=== PATIENT | female | born 1990 | race Caucasian/White ===

== ENCOUNTER 2020-08-21 11:08 | Outpatient (CLI) | payer BC, SELFPAY ==
--- NOTE | ~2020-08-21 | XR_ITS ---
EXAMINATION: XR hysterosalpingogram DATE: 08/21/2020 15:16 CDT INDICATION: Infertility TECHNIQUE: Fluoroscopy was provided for a hysterosalpingogram performed by Dr. Green. FINDINGS: Initial specialty sales consultant radiographically of the pelvis demonstrates a right pelvic phlebolith. There is normal intraluminal morphology of the uterus. The fallopian tubes are normal in appearance and a re widely patent, with free spill into the peritoneal cavity from both sides. IMPRESSION: 1. Normal hysterosalpingogram. The uterus demonstrates normal intraluminal morphology and both fall opian tubes are patent. Reviewed, dictated and finalized at location A. IMPRESSION: 1. Normal hysterosalpingogram. The uterus demonstrates normal intraluminal mo rphology and both fallopian tubes are patent.
== END 2020-08-21 11:09 | disposition home or self-care (01) ==
PROVIDERS: PCP Obstetrics & Gynecology; Visit Provider Obstetrics & Gynecology
DX: N97.9 Female infertility, unspecified (principal)
CPT/HCPCS: 58340; 74740

== ENCOUNTER 2021-04-15 12:05 | Outpatient (RCR) | payer BC, SELFPAY ==
[2021-04-17] MEDS: RHO(D) IMMUNE GLOBULIN 300 MCG/2 ML SYRINGE IM (12:04)
== END 2021-07-14 23:59 | disposition home or self-care (01) ==
LOC: ANHLAB 12:05
PROVIDERS: Visit Provider Obstetrics & Gynecology
DX: Z29.13 Encounter for prophylactic Rho(D) immune globulin (principal); O36.0190 Maternal care for anti-D [Rh] antibodies, unspecified trimester, not applicable or unspecified; Z3A.00 Weeks of gestation of pregnancy not specified
CPT/HCPCS: 36415; 85461; 90384; 96372; J2790

== ENCOUNTER 2021-04-25 13:00 | Outpatient (RCR) | payer BC, SELFPAY ==
[2021-04-25 13:05] VITALS: BMI 51.8
[2021-04-25 13:06] VITALS: BMI 51.8
== END 2021-07-15 11:31 | disposition home or self-care (01) ==
LOC: ANHDMC 13:00
PROVIDERS: Visit Provider Obstetrics & Gynecology
DX: O24.319 Unspecified pre-existing diabetes mellitus in pregnancy, unspecified trimester (principal); Z3A.00 Weeks of gestation of pregnancy not specified; Z71.3 Dietary counseling and surveillance; Z71.89 Other specified counseling
CPT/HCPCS: 97802; G0108

== ENCOUNTER 2021-06-12 10:01 | Outpatient (RCR) | payer BC, SELFPAY ==
[2021-05-15 11:53] VITALS: BP 124/65; PULSE 100
[2021-05-22 10:57] VITALS: BP 119/77; PULSE 110
[2021-05-29 10:08] VITALS: BP 115/68; PULSE 97
[2021-06-04 14:06] VITALS: BP 107/59; PULSE 100
[2021-06-12 10:49] VITALS: BP 111/72; PULSE 86
== END 2021-06-18 08:55 | disposition home or self-care (01) ==
LOC: ANHOBOP 10:01
PROVIDERS: Visit Provider Obstetrics & Gynecology
DX: O24.419 Gestational diabetes mellitus in pregnancy, unspecified control (principal); Z3A.31 31 weeks gestation of pregnancy; Z3A.33 33 weeks gestation of pregnancy; Z3A.34 34 weeks gestation of pregnancy; Z3A.35 35 weeks gestation of pregnancy; Z3A.36 36 weeks gestation of pregnancy; Z3A.37 37 weeks gestation of pregnancy
CPT/HCPCS: 59025

== ENCOUNTER 2021-06-17 14:55 | Outpatient (CLI) | payer BC, SELFPAY ==
[2021-06-17 15:23] LABS: Hematocrit 39.3 % (37.0-47.0); Hemoglobin 12.3 g/dL (12.0-15.0); Mean Corpuscular HGB Conc 31.3 g/dl (32-36); Mean Corpuscular Hemoglobin 28.8 pg (26-34); Platelet Count Result 215 k/mm3 (150-375); Red Blood Count 4.27 M/mm3 (4.2-5.4); Red Cell Distribution Width 14.8 % (11.5-14.5); White Blood Count 9.3 K/mm3 (4.5-10.0)
[2021-06-18 11:24] LABS: Rapid Plasma Reagin Non-Reactive (NonReactive)
== END 2021-06-17 14:56 | disposition home or self-care (01) ==
PROVIDERS: Visit Provider Obstetrics & Gynecology
DX: Z01.818 Encounter for other preprocedural examination (principal)
CPT/HCPCS: 36415; 85027; 86592; 86850; 86900; 86901

== ENCOUNTER 2021-06-18 02:30 | Inpatient (IN) | payer BC, SELFPAY ==
--- NOTE | 2021-06-04 14:01 | PC.NURSE ---
VERIFIED WITH OR SCHEDULE AND PATIENT - C/S ON 06/18/21 AT 1200 PATIENT GIVEN REQUISITION FOR LAB DRAW ON 06/17/21
[2021-06-18] VITALS (56 sets, daily range): BP systolic 85–136; BP diastolic 29–83; PULSE 50–117; RESP 12–18; TEMP 36.1–36.8; O2SAT 90–97; BMI 51.7
--- NOTE | 2021-06-18 03:10 | PC.NURSE ---
pt reports blood glucose reading of 90 at time of admission using personal glucose monitor. dr martinez aware
[2021-06-18] MEDS: LACTATED RINGERS 1,000 ML 125 ML IV CONT (03:20)
--- NOTE | 2021-06-18 03:31 | WPDANESEPPF ---
Anes - Initial Pre Proc Eval Procedure: Operation Date: 06/18/21 12:00 Proposed Procedures p Repeat Section - Logan Green MD Date/Time: 06/18/21 03:31 Surgeon: Logan Green MD Pre Op Diagnosis: Leaking Patient Data Age: 31 Gender: F Height: 1.55 m Weight: 124.3 kg Last Vital Signs Pulse 117 H 06/18/21 03:02 BP 116/51 L 06/18/21 03:02 Allergies Allergy/AdvReac Type Severity Reaction Status Date / Time No Known Allergies Allergy Unknown Verified 06/04/21 13:52 Home Medications Medication Instructions Recorded Confirmed Type [id number] fumarate-FA 1 tablet PO DAILY 05/15/21 05/15/21 History [] glyburide 5 mg PO BID 05/15/21 05/15/21 History glyburide 10 mg PO HS 06/04/21 06/04/21 History Patient hx anesthesia problems: none Family hx anesthesia problems: none PMFSH Past Medical History Medical History GDM (gestational diabetes mellitus) Surgical History Surgical History History of History of cholecystectomy Family History Family History Mother Hypertension Type 2 diabetes mellitus Father Hypertension Grandparent Colon cancer Type 2 diabetes mellitus Social History Social History Smoking status: Never smoker Alcohol intake: current Substance use: never Spiritual care concerns: No Anes - Eval Final PreProcedure Day of Procedure 06/18/21 03:31 Patient weight: morbidly obese Heart: regular rate and rhythm Lungs: clear to auscultation and normal air movement Airway: Mallampati scale class II Neurological: alert and oriented Last oral intake: 6 hours ASA classification: III Emergent: yes Anesthetic plan: proceed Anesthesia type and monitoring: regional spinal and standard monitoring Informed Consent: The patient's anesthetic plan and its attendant risks and benefits were discussed with the patient/family/POA. Questions were solicited and answers provided to the satisfaction of the patient/family/POA.
--- NOTE | 2021-06-18 03:40 | PM.IMHP ---
H&P: HPI History of Present Illness Date/Time: 06/18/21 03:40 31 y/o at 38 2/7 weeks with A2DM, on glyburide. Had gush of clear fluid. SROM confirmed on L&D. GBS neg. Rh neg. Chief Complaint: My water broke. Review of Systems Review of Systems: All systems reviewed & are unremarkable except as noted in HPI and below PMFSH Past Medical History Medical History (Updated 06/18/21 @ 03:43 by Logan Green MD) GDM (gestational diabetes mellitus) Surgical History Surgical History (Updated 06/18/21 @ 03:43 by Logan Green MD) History of ankle surgery History of History of cholecystectomy Family History Family History Mother Hypertension Type 2 diabetes mellitus Father Hypertension Grandparent Colon cancer Type 2 diabetes mellitus Social History Social History Smoking status: Never smoker Alcohol intake: current Substance use: never Spiritual care concerns: No Meds Home Medications and Allergies Home Medications Medication Instructions Recorded Confirmed Type [id number]-byytxfr fumarate-FA 1 tablet PO DAILY 05/15/21 05/15/21 History [] glyburide 5 mg PO BID 05/15/21 05/15/21 History glyburide 10 mg PO HS 06/04/21 06/04/21 History Allergies Allergy/AdvReac Type Severity Reaction Status Date / Time No Known Allergies Allergy Unknown Verified 06/04/21 13:52 Vital Signs Vital Signs - 24 hr 06/18/21 03:02 06/18/21 03:31 Pulse Rate 117 H 87 Blood Pressure 116/51 L 126/68 Exam Const: Orientation/consciousness: patient oriented x3 Other: Well-developed, well-nourished female in no acute distress. Neck: Thyroid: thyroid normal Lymphatic: no lymphadenopathy noted (in neck, axilla or inguinal nodes) Resp: Effort & Inspection: normal respiratory effort Auscultation: clear to auscultation bilaterally Cardio: Rate: regular rate Rhythm: regular rhythm Heart sounds: S1 normal heart sound present and S2 normal heart sound present GI: Other: ABD: Soft, nontender, nondistended, gravid. NST reactive. TOCO: contractions every 2-5 min. No guarding or rebound tenderness. No hepatosplenomegaly. : General: Yes no CVA tenderness Other: Gross ROM. Cervix 3/50/-2 Back/Spine/Pelvis: Back: no CVA tenderness Skin: General skin exam: normal color and no rashes or lesions noted Neuro: General: patient oriented x3 Extrem: Other: Extremities: nontender with no edema Psych: Mental Status: mental status grossly normal Affect: normal affect Assessment and Plan Assessment and plan (1) SROM (spontaneous rupture of membranes): Status: Acute Assessment and Plan: A: IUP at 38 2/7 weeks with SROM, prior , A2DM. P: She desires repeat . She understands risks of surgery to include risks of anesthesia, risks of pain, infection, bleeding, blood products, thromboembolic phenomena and damage to adjacent structures such as bowel, bladder, ureters, blood vessels and nerves. She understands all these risks and elects to proceed with surgery. (2) GDM (gestational diabetes mellitus): Code(s): O24.419 - Gestational diabetes mellitus in , unspecified control Status: Inactive (3) History of : Code(s): Z98.891 - History of uterine scar from previous surgery Status: Inactive
[2021-06-18] MEDS: ceFAZolin 3 GM/D5W 100 ML 100 ML IVPB (03:43)
--- NOTE | 2021-06-18 03:44 | WPDHPUPDATE1 ---
History and Physical Update Update Date/Time: 06/18/21 03:44 History and Physical has been reviewed, including an updated exam of the patient. There are NO changes in the patient's condition. Risks, benefits, and alternatives have been discussed and questions answered. Patient agrees to proceed with procedure.
--- NOTE | 2021-06-18 05:20 | P.PCNOB_ITS ---
OB - Delivery Note Procedure Delivery date: 06/18/21 Procedure: Procedures Operation Date: 06/18/21 03:33 Actual Procedure Side Surgeon p Section Not Applicable Logan Green MD Repeat LTCS events: Gestational Diabetes Induction method: none Delivery monitor: external FHT and external uterine Route of delivery: Specimen: Yes (cord blood, placenta) Quantitative Blood Loss (ml): 820 Anesthesia type: Spinal Disposition: PACU Complications: None Narrative: Findings: Dense adhesions between the anterior serosa of the uterus and the anterior abdominal wall. Normal-appearing tubes and ovaries. Techniques: The patient was taken to the operating room where she was prepared and draped in the usual sterile fashion in dorsal supine position with a leftward tilt. She received cefazolin preoperatively. Spinal anesthesia was found to be adequate. A Pfannenstiel skin incision was made along the previous scar line and was carried through to the underlying layer of the fascia. The fascia was incised in the midline and the incision was extended laterally. The fascia was dissected free of the underlying rectus muscles. The rectus muscles were in the midline. The peritoneum was identified, tented up and entered sharply. The peritoneal incision was extended superiorly and inferiorly with good visualization of the bladder. The bladder blade was placed. The vesicouterine peritoneum was identified, tented up and entered sharply. The incision was extended laterally and the bladder flap was developed. The bladder blade was replaced. The uterus was then incised sharply in a transverse fashion along the lower uterine segment. The incision was extended laterally. The infant's head was delivered atraumatically to the sterile field, followed by the body. The nose and mouth were bulb suctioned. After a delay, the cord was clamped and cut. The was handed off the field. Cord blood was collected. The placenta was removed manually and was passed off the field. The uterus was exteriorized and cleared of all clots and debris. The uterine incision was reapproximated using 0 Monocryl in a running, locked fashion. A second, imbricating layer of the same suture was run. Excellent hemostasis resulted as did excellent reapproximation of the normal anatomy. The uterus was returned the abdomen. The pelvis was irrigated copiously with warmed normal saline. Rigorous hemostasis was assured. The fascial layer was reapproximated using 0 Vicryl in a running fashion. The skin was closed with a running, subcuticular stitch of 4 0 Vicryl. Dermaflex was applied externally. Sponge, lap, needle and instrument counts were correct. The patient was taken to the recovery room in stable condition. The infant went to the nursery in stable condition. I was present and scrubbed the entire procedure. [place] Baby Date of : 06/18/21 Time of : 04:40 Weeks of gestation at delivery: 38 Infant gender: Male Weight (pounds): 9 Weight (ounces): 6 presentation: vertex Placenta delivery description: Manual Removal and Normal Configuration cord vessel description: 3 Vessels and Delayed Cord Clamping score one minute: 8 score five minutes: 9
--- NOTE | 2021-06-18 05:23 | PM.OBDSVD ---
DS: Admitting Diagnosis Admitting Diagnosis Admitting Diagnosis: IUP at 38 2/7 weeks SROM Prior , desires repeat A2DM DS: Discharge Diagnosis Discharge Diagnosis (1) SROM (spontaneous rupture of membranes): Status: Acute (2) GDM (gestational diabetes mellitus): Code(s): O24.419 - Gestational diabetes mellitus in , unspecified control Status: Acute (3) History of : Code(s): Z98.891 - History of uterine scar from previous surgery Status: Acute OB - DS: Summary OB Procedures : None OB Procedures Intrapartum: OB Procedures: : None Peripartum Data Procedures: Procedures Operation Date: 06/18/21 03:33 Actual Procedure Side Surgeon p Section Not Applicable Logan Green MD Discharge Plan Discharge Attending physician on discharge: Logan Green Discharging Clinician: Logan Green Patient Disposition: Home, Self-Care Activity: may shower, may drive after 2 weeks and pelvic rest Diet: regular Wound Care Instructions: incision open to air Discharge Instructions: Call or return if temperature above 100.4? F, increased abdominal pain, increased vaginal bleeding or any new problems. Education: Mom and Baby Guide Given to: Mother Follow-Up: Call your delivering provider's office for an appointment to be seen in: 4 Weeks Mom and baby should come to the [facility] for the follow-up appointment. Appointment Date/Time: June 22, 2021 at 11:00 am What to expect at your follow-up visit: Physical Assessment Call [phone] if you are unable to keep your appointment time. BREAST CARE: * Wear a snug supportive bra. * For engorgement discomfort: Bottle Feeding: * May apply ice packs ABDOMINAL INCISION: (if applicable) * Allow incision to air dry * Do NOT use lotions for powders on your incision * When showering, allow soap and water to run over the incision, but do not wash incision EPISIOTOMY/PERINEAL CARE: * Until bleeding stops, use your parth bottle after urinating * Change your pad frequently throughout the day * No tub baths until seen by your physician - You may shower ACTIVITY: * Rest as much as possible. * Do not exercise or lift anything heavier than your baby (such as laundry or other children.) * Avoid stairs or driving as much as possible. * Do not put anything into the vagina. No douching, tampons, or sexual activity until seen by physician. NOTIFY PHYSICIAN IF YOU HAVE ANY QUESTIONS OR IF ANY OF THE FOLLOWING SYMPTOMS OCCUR: * If your incision becomes red, swollen, or more painful than what you have experienced in the hospital. * If your vaginal bleeding becomes foul smelling. * If your vaginal bleeding becomes more heavy than a period or if your bleeding changes from pink to bright red. However, you may pass an occasional walnut-sized clot once or twice for the first week . * If you experience a sharp, shooting pain in you calves. * If you discover a hard, reddened area on your breast or if you experience flu-like symptoms. DIET: * Eat regular, well-balanced meals. * Drink plenty of fluids daily. If , drink to thirst. Stand Alone Forms: General Discharge Information Follow-up/Referrals: Logan Green MD [Physician] - 4 Weeks Discharge Medications: New ibuprofen 600 mg tablet 600 mg PO Q6H PRN (Reason: cramps) Qty: 30 RF: 0 hydrocodone-acetaminophen 5-325 mg tablet 1 - 2 tablet PO Q6H PRN (Reason: pain) Qty: 30 RF: 0 Continued 28-800 mg-mcg Tablet 1 tablet PO DAILY RF: 0 Discontinued glyburide 5 mg Tablet 5 mg PO QAM RF: 0 glyburide 5 mg Tablet 10 mg PO HS RF: 0 Date of admission: 06/18/21 02:30 Primary Care Provider: PHYSICIAN,MIS DIRECTOR Admitting Provider: Logan Green Attending physician on admission: Jasiel Byers
[2021-06-18] MEDS: KETOROLAC 30 MG/ML VIAL (*BKC) IV PUSH (10:49)
[2021-06-18] MEDS: ONDANSETRON INJ 4 MG/2 ML VIAL IV PUSH (10:49)
[2021-06-18] MEDS: DEXTROSE 5%/0.45% SOD CHL 1,000 ML 125 ML IV CONT (10:56)
[2021-06-18] MEDS: KCL 20 MEQ/D5/0.45% SOD CHL 1,000 ML 125 ML IV CONT (14:54)
[2021-06-19 05:10] LABS: Basophils Percent Auto 0.1 % (0.2-1.2); Eosinophils Percent Auto 0.2 % (0-4.4); Hematocrit 33.3 % (37.0-47.0); Hemoglobin 10.1 g/dL (12.0-15.0); Immature Granulocyte Absolute 0.07 K/mm3 (0.00-0.031); Immature Granulocyte Percent A 0.5 % (0-0.5); Lymphocytes Absolute Auto 1.59 K/mm3 (0.9-3.2); Lymphocytes Percent Auto 11.8 % (18.3-44.2); Mean Corpuscular HGB Conc 30.3 g/dl (32-36); Mean Corpuscular Hemoglobin 29.2 pg (26-34); Mean Corpuscular Volume 96.2 fl (80-100); Mean Platelet Volume 11.7 fl (7.4-10.4); Monocytes Percent Auto 7.4 % (2.6-8.5); Neutrophils Absolute Auto 10.8 K/mm3 (1.3-6.7); Platelet Count Result 202 k/mm3 (150-375); Red Blood Count 3.46 M/mm3 (4.2-5.4); White Blood Count 13.5 K/mm3 (4.5-10.0)
[2021-06-19] MEDS: IBUPROFEN 600 MG TABLET PO ×2 (05:32→16:20)
[2021-06-19 09:00] VITALS: BP 138/80; PULSE 84; RESP 18; TEMP 37; O2SAT 100
[2021-06-19] MEDS: MULTIVIT/MIN/PREN/FOL AC/IRON TABLET 1 TAB PO (10:04)
[2021-06-19] MEDS: SCOPOLAMINE 1.5 MG PATCH TRANSDERM (10:04)
[2021-06-19] MEDS: DOCUSATE SODIUM 100 MG CAPSULE PO ×2 (10:04→16:20)
--- NOTE | 2021-06-19 10:48 | WPDANLDPN2 ---
Anes-Prog Note L&D Date/Time: 06/19/21 10:48 Comfortable throughout: section Neuraxial method: spinal Epidural/Spinal procedure site: clean & non-tender Neuro status: Neuro function grossly intact. Cardiovascular status: normal Respiratory status: normal Airway patency: baseline Mental status: baseline Post-Op hydration status: normal Vital Signs: Last Vital Signs Temp 36.7 C 06/18/21 19:36 Pulse 83 06/18/21 19:36 Resp 16 06/18/21 19:36 BP 107/51 L 06/18/21 19:36 Pulse Ox 96 06/18/21 13:00 Pain score (VAS): 0 I/O: Intake & Output 06/18/21 06/19/21 06/19/21 23:59 07:59 15:59 Output Total 1000 Balance -1000 Post-procedural complaints: none Patient feedback: Patient satisfied with anesthetic care.
--- NOTE | 2021-06-19 10:48 | WPDANLDNPN2 ---
Anes-Prog Note L&D-Neuraxial Date/Time: 06/19/21 10:48 Neuraxial medications: intrathecal PF morphine Opiod-related complaints: none Patient feedback: Patient satisfied with post-operative pain management.
--- NOTE | 2021-06-19 13:30 | PM.OBPNVD ---
OB - PN: Subj Subjective Date/time seen: 06/19/21 18:48 Narrative: Pain OK. Tolerating diet. Would like circumcision for son. OB - PN: Obj Data Labs CBC & Chem 7: 06/19/21 04:39 Labs: Laboratory Results - last 24 hr 06/19/21 06/19/21 04:39 04:39 WBC 13.5 H RBC 3.46 L Hgb 10.1 L Hct 33.3 L MCV 96.2 MCH 29.2 MCHC 30.3 L RDW 15.0 H Plt Count 202 MPV 11.7 H Immature Gran % (Auto) 0.5 Neut % (Auto) 80.0 H Lymph % (Auto) 11.8 L Gaines % (Auto) 7.4 Eos % (Auto) 0.2 Baso % (Auto) 0.1 L Lymph # (Auto) 1.59 Gaines # (Auto) 1.0 H Eos # (Auto) 0.0 Baso # (Auto) 0.0 Abs Immat Gran (auto) 0.07 H Absolute Neuts (auto) 10.8 H Absolute Nucleated RBC 0.0 Nucleated RBC % 0.0 Blood Type O Negative Antibody Screen Negative Screen Negative Baby's Blood Type O pos Baby's BO Negative Doses of RhIg Required 1 OB - PN A/P Plan Comments: A: POD#1, doing well. P: Routine care. Exam Narrative: Exam Narrative: AVSS I/O OK ABD soft, nontender, fundus firm. Incision c/d/i. EXT nontender
[2021-06-19] MEDS: RHO(D) IMMUNE GLOBULIN 300 MCG/2 ML SYRINGE IM (14:03)
[2021-06-19 20:30] VITALS: BP 127/73; PULSE 86; RESP 20; TEMP 36.8; O2SAT 100
[2021-06-20] MEDS: IBUPROFEN 600 MG TABLET PO ×2 (00:14→09:25)
[2021-06-20 08:45] VITALS: BP 133/83; PULSE 80; RESP 18; TEMP 36.8; O2SAT 100
[2021-06-20] MEDS: DOCUSATE SODIUM 100 MG CAPSULE PO (09:25)
--- NOTE | 2021-06-20 13:29 | PC.NURSE ---
Patient viewed the discharge video Mother & Baby Care, The First Two Weeks . Patient was given the opportunity and encouraged to ask questions. Patient verbalized understanding of information shared and has been given the mother/baby guide for home reference.
[2021-06-22 11:17] VITALS: BP 139/76; PULSE 89; RESP 20; TEMP 36.8; O2SAT 100
== END 2021-06-20 14:24 | disposition home or self-care (01) | DRG 787 ==
LOC: ANHLDR 05:25 → ANHOB2 06-20 13:38 → ANHLDR 06-21 12:37 → ANHOB2 06-21 12:37
PROVIDERS: Admitting Provider Obstetrics & Gynecology; Visit Provider Student in an Organized Health Care Education/Training Program
PROC: 10D00Z1 Extraction of Products of Conception, Low, Open Approach (ICD-10-PCS; CPT 59514; principal; 2021-06-18 12:00)
DX: O24.429 Gestational diabetes mellitus in childbirth, unspecified control (principal); O36.0930 Maternal care for other rhesus isoimmunization, third trimester, not applicable or unspecified; Z37.0 Single live birth; Z3A.38 38 weeks gestation of pregnancy; O34.211 Maternal care for low transverse scar from previous cesarean delivery; O99.214 Obesity complicating childbirth; E66.01 Morbid (severe) obesity due to excess calories
CPT/HCPCS: 36415; 84112; 85025; 85461; 88307; 90384; A9270; J0131; J0690; J1100; J1885; J2274; J2370; J2405; J2590; J2790; J3480; J7120

== ENCOUNTER 2023-10-27 08:59 | Outpatient (CLI) | payer BC, SELFPAY ==
[2023-10-27 09:13] LABS: Basophils Absolute Auto 0.03 K/mm3 (0.00-0.10); Basophils Percent Auto 0.4 % (0.0-1.0); Eosinophils Absolute Auto 0.07 K/mm3 (0.02-0.50); Eosinophils Percent Auto 0.9 % (1.0-6.0); Hematocrit 42.9 % (35.0-49.0); Hemoglobin 13.3 g/dL (12.0-15.0); Immature Granulocyte Absolute 0.04 K/mm3 (0.00-0.00); Immature Granulocyte Percent A 0.5 % (0.0-0.0); Lymphocytes Absolute Auto 2.09 K/mm3 (1.10-4.50); Lymphocytes Percent Auto 27.5 % (18.0-42.0); Mean Corpuscular Hemoglobin 29.3 pg (27.0-31.0); Mean Corpuscular Volume 94.5 fL (78.0-102.0); Mean Platelet Volume 9.3 fl (9.2-11.8); Monocytes Absolute Auto 0.45 K/mm3 (0.10-0.90); Monocytes Percent Auto 5.9 % (2.0-11.0); Neutrophils Absolute Auto 4.9 K/mm3 (1.7-7.2); Neutrophils Percent Auto 64.8 % (50.0-70.0); Platelet Count Result 345 K/mm3 (150-420); Red Blood Count 4.54 M/mm3 (4.20-5.40); Red Cell Distribution Width 12.7 % (11.6-14.4); White Blood Count 7.6 K/mm3 (4.8-10.8)
[2023-10-27 09:31] LABS: Hemoglobin A1C 6.5 % (<5.7)
[2023-10-27 10:16] LABS: Aspartate Amino Transferase < 10 U/L (15-37); HDL Direct 7 mg/dL (40-60)
[2023-10-27 10:56] LABS: Alanine Aminotransferase 27 U/L (14-59); Albumin Level 3.4 g/dL (3.4-5.0); Alkaline Phosphatase 86 U/L (46-116); Anion Gap 7 mmol/L (8-16); Bilirubin,Total 0.3 mg/dL (0.00-1.00); Blood Urea Nitrogen 12 mg/dL (7-18); Carbon Dioxide 31 mmol/L (21-32); Chloride 104 mmol/L (98-108); Cholesterol 164 mg/dL (0-200); Estimated Glomerular Filt Rate > 60; Folic Acid 12.7 ng/mL (8.6->20); LDL Cholesterol Calculated 137 mg/dL (<130); Potassium 4.1 mmol/L (3.5-5.1); Sodium 142 mmol/L (136-145); Total Protein 7.5 g/dL (6.4-8.2); Triglycerides 102 mg/dL (0-150); Vitamin B12 238 pg/mL (193-986)
[2023-10-27 11:28] LABS: Glucose 108 mg/dL (70-99); Osmolality Calculated 294 mOsm/kg (285-295); Thyroid Stimulating Hormone Reflex 1.34 u/IU/mL (0.36-3.74)
== END 2023-10-27 09:00 | disposition home or self-care (01) ==
LOC: CHSLAB 09:01
PROVIDERS: PCP Family Medicine; Visit Provider Family Medicine
DX: Z00.00 Encounter for general adult medical examination without abnormal findings (principal); E11.9 Type 2 diabetes mellitus without complications; E53.8 Deficiency of other specified B group vitamins
CPT/HCPCS: 36415; 80053; 80061; 82607; 82746; 83036; 84443; 85025

== ENCOUNTER 2025-03-21 11:16 | Outpatient (RCR) | payer BC, SELFPAY ==
--- OUTSIDE RECORDS SUMMARY | 2025-03-21 13:08 | XMS_ITS | Clinical Summary ---
Author Organization [facility] Address [address] [place] [address] Care Team Providers Care Team Assembler Name Role Phone Natalia Quiñonesaramachelle ENRIQUEZ Primary Care Provider [phone] Source Comments [facility] Affiliates and Associated Physician Practices is amultiple site organization consisting of ambulatory clinics and hospital sitesin [place], [place], [place] and [place]. This disclosure is being madepursuant to the Care Everywhere program and may not contain all information available regarding this patient. 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 Gender Identity Not on file Sexual Orientation Not on file Plan of Treatment Health Maintenance Due Date Last Done Comments HIV SCREENING 2004 HEPATITIS C SCREENING 05/12/2007 DTAP/TDAP/TD VACCINES (1 - Tdap) 2008 HEPATITIS B VACCINE (1 of 3 - 19+ 3-dose series) 2008 COVID-19 VACCINE (2 - 2023-2 5 season) 2024 12/04/2021 DEPRESSION SCREENING 11/30/2024 INFLUENZA VACCINE (Season Ended) 2025 ZOSTER VACCINE (1 of 2) 2039 HIB VACCINE Aged Out No longer eligi ble based on patient's age to complete this topic HPV VACCINE Aged Out No longer eligi ble based on patient's age to complete this topic MENINGOCOCCAL (Group B) VACC INE SHARED DECISION-MAKING Aged Out No longer eligibl e based on patient's age to complete this topic MENINGOCOCCAL GROUPS A/C/Y/W VACCINE Aged Out No longer eligible b ased on patient's age to complete this topic PNEUMOCOCCAL VACCINE Aged Out No long er eligible based on patient's age to complete this topic Insurance ANTH Care Teams Team Assembler Relationship Specialty Start Date End Date Fahad Quiñones DO [address] [place] [address] PCP - General 09/02/12
[2025-03-21] MEDS: RHO(D) IMMUNE GLOBULIN 300 MCG/2 ML SYRINGE IM (20:13)
== END 2025-06-19 23:59 | disposition home or self-care (01) ==
LOC: ANHLAB 11:16
PROVIDERS: PCP Family Medicine; Visit Provider Obstetrics & Gynecology
DX: O20.0 Threatened abortion (principal); Z29.13 Encounter for prophylactic Rho(D) immune globulin; O36.0190 Maternal care for anti-D [Rh] antibodies, unspecified trimester, not applicable or unspecified; Z3A.00 Weeks of gestation of pregnancy not specified
CPT/HCPCS: 36415; 85461; 86850; 86900; 86901; 90384; 96372; J2790